=== PATIENT | female | born 1990 ===

== ENCOUNTER 2018-01-28 09:07 | Emergency (ER) | payer BC ==
[2018-01-28 09:17] VITALS: BP 123/79; PULSE 92; RESP 16; TEMP 98.9; O2SAT 100
--- NOTE | 2018-01-28 10:23 | ED PDOC ---
Lower Extremity Pain/Injury Time Seen by Provider: 01/28/18 09:25 Chief Complaint (Nursing): Lower Extremity Problem/Injury Chief Complaint (Provider): R leg pain History Per: Patient History/Exam Limitations: no limitations Additional Complaint(s): Pt dx with tib-fib fx in [facility] in 01/21, splint placed, presents today due to pain, has been taking Tramadol with relief. Also feels splint has shifted. Denies new swelling, paresthesias, weakness. Pt leaving for [facility] tomorrow for further treatment. Past Medical History Reviewed: Nursing Documentation, Vital Signs Vital Signs: Last Vital Signs Temp 98.9 F 01/28/18 09:25 Pulse 92 H 01/28/18 09:25 Resp 16 01/28/18 09:25 BP 123/79 01/28/18 09:25 Pulse Ox 100 01/28/18 09:25 - Medical History PMH: Hypothyroidism Denies: Chronic Kidney Disease - Family History Family History: States: Unknown Family Hx - Social History Current smoker - smoking cessation education provided: No Alcohol: None - Allergies Allergies/Adverse Reactions: Allergies Allergy/AdvReac Type Severity Reaction Status Date / Time No Known Allergies Allergy Verified 01/28/18 09:57 Review of Systems Constitutional: Negative for: Fever Cardiovascular: Negative for: Chest Pain Respiratory: Negative for: Cough, Shortness of Breath Musculoskeletal: Positive for: Leg Pain Skin: Negative for: Rash, Lesions Neurological: Negative for: Headache Physical Exam - Reviewed Nursing Documentation Reviewed: Yes Vital Signs Reviewed: Yes - Physical Exam Appears: Positive for: Well, No Acute Distress Skin: Positive for: Normal Color, Warm, Dry Extremity: Positive for: Tenderness (Lower leg anteriorly), Capillary Refill (< 2 sec), Swelling, Other (Normal color, normal temperature, +2 DP pulse). Negative for: Normal ROM, Pedal Edema, Calf Tenderness, Deformity - ECG O2 Sat by Pulse Oximetry: 100 Medical Decision Making Medical Decision Makin yo female with diagnosed R tib-fib fx. - XR R tib-fib 10:25 Pt refusing XR. States she does not need anything for pain now. Disposition - Clinical Impression Clinical Impression: Fracture of tibia and fibula - Disposition Disposition: Routine/Home Disposition Time: 10:28 Condition: GOOD Additional Instructions: CONTINUE TRAMADOL NEEDED FOR PAIN. Instructions: Shinbone Fracture
== END 2018-01-28 10:55 | disposition home or self-care (01) ==
LOC: H.ER 09:07
DX: Z47.89 Encounter for other orthopedic aftercare (principal); E03.9 Hypothyroidism, unspecified